=== PATIENT | male | born 1975 | race Caucasian/White ===

== ENCOUNTER 2018-03-25 01:19 | Outpatient (CLI) | payer OTHER, SELFPAY | END 2018-03-25 01:39 | PROVIDERS: PCP Family Medicine; Visit Provider Nurse Practitioner Family | DX: F11.20 Opioid dependence, uncomplicated (principal); Z79.899 Other long term (current) drug therapy; Z13.6 Encounter for screening for cardiovascular disorders | CPT/HCPCS: 93005; 93010 ==

== ENCOUNTER 2018-08-18 10:31 | Emergency (ER) | payer OTHER, SELFPAY ==
[2018-08-18 10:36] VITALS: BP 133/89; PULSE 79; RESP 16; TEMP 37.1; O2SAT 98
[2018-08-18] MEDS: Pantoprazole 40 MG TABCR PO (10:50)
[2018-08-18] MEDS: Sucralfate 1 GM TAB PO (10:51)
[2018-08-18] MEDS: Bupivacaine 0.5% Pres-Free 30 ML VIAL (10:51)
--- NOTE | 2018-08-18 11:23 | W.ED.GENAD ---
Discharge Plan Disposition Patient Disposition: HOME Condition: Good Discharge Details Chief Complaint: GI Bleed Clinical Impression: Toothache Primary Care Provider: Nixon Alonso ED Provider: Martin Degroot Home Meds and New Rx's Prescriptions: New sucralfate [Carafate] 1 gram tablet 1 gm PO QACHS Qty: 90 RF: 0 pantoprazole [Protonix] 40 mg tablet,delayed release (DR/EC) 40 mg PO DAILY Qty: 30 RF: 0 acetaminophen 500 mg capsule 1,000 mg PO Q6H PRN (Reason: pain) Qty: 30 RF: 0 amoxicillin-pot clavulanate [Augmentin] 875-125 mg tablet 1 tab PO BID Qty: 14 RF: 0 No Action metoprolol succinate 50 mg cap,sprinkle,ER 24hr dose pack 50 mg PO DAILY RF: 0 aspirin 81 mg tablet,delayed release (DR/EC) 81 mg PO DAILY Qty: 90 RF: 4 methadone [Methadose] 40 mg tablet,soluble 50 mg PO BID RF: 0 atorvastatin [Lipitor] 80 MG tablet 80 mg PO HS RF: 0 nitroglycerin [Nitrostat] 0.4 MG tablet, sublingual 0.4 mg Sublingual PRN PRNRF: 0 lisinopril 2.5 MG tablet 2.5 mg PO DAILY RF: 0 Discharge Instructions Instructions: Toothache (ED) Additional Instructions: Please take medication as directed. Please stop taking ibuprofen. Please follow-up immediately with your dentist if you notice any worsening of your symptoms, or any new symptoms such as vomiting, diarrhea, fever, chills, shortness of breath, chest pain, numbness, weakness, or fainting , please return immediately to the emergency department for reevaluation. Please follow up with your primary care provider as soon as possible for reassessment and reevaluation. As always, it was a pleasure participating in your medical care today. . Referrals: Nixon Alonso [Primary Care Provider] - Medical Decision Making This is a very pleasant 43-year-old male who presents for evaluation of toothache, as well as one episode of a small amount of blood in his stool. Patient has a history of dental caries this and has been taking a notable amount of ibuprofen over the last few days. The ibuprofen has been notably improving his pain, however with his aspirin I feel that it may have caused mild gastritis or gastric ulcer. No significant pain on exam. Rectal exam shows no evidence of active blood or melena. No significant tenderness on palpation of the abdomen. With the presence of the patient's dental caries we did perform a dental block of his tooth the patient feels complete relief. He most likely has a mild periapical infection, and we will start an antibiotic. I discussed with the patient further imaging and laboratory workup to evaluate for anemia, diverticulitis, or mass, the patient would like to hold off in any of this at this time. With a recent colonoscopy 5 years ago, no family history of colon cancer refill and no signs of abdominal tenderness on exam I feel the likelihood of an acute abdominal pathology is very low. Regardless did make it clear to the patient that if he has a change of opinion he can always return for repeat evaluation and further imaging and laboratory workup. The patient does understand. With reassuring vital signs, and pain completely relieved with the dental block I feel that he can be safely discharged home with close follow-up. We have given him the dental sheet for information for which to call, as well as red flags and reasons for which to promptly return. I have extensively reviewed the treatment plan and discharge instructions with the patient. I have addressed all patient concerns at this time. The patient was made aware of what symptoms to monitor for that would warrant a return to the emergency department. Discussed the plan with the patient, they demonstrate verbal understanding and agreement with our assessment and plan at this time. HPI General Date/Time Provider Initiated Documentation: 08/18/18 10:33. HPI Narrative: This is a 43-year-old male with past medical history of dental caries, as well as cardiac disease with 1 stent, hypertension, high cholesterol who presents today for toothache. The patient states that he has a history of dental caries and over the last few days he has had notable worsening of his right upper teeth for pain. He does have dental insurance now starting at the first of the year, but has not seen a dentist. He has been taking an excessive amount of ibuprofen over the last 2-3 days in conjunction with his regular aspirin, he states that this morning he noticed a small amount of red blood in conjunction with loose stool. he was at the [facility] clinic today and discussed this with them. He stated that he went to go see a dentist but they recommended he come in here for further evaluation. Patient denies any significant abdominal pain, vomiting, repeat rectal bleeding, pain with defecation, or other complaints. He denies any systemic symptoms of fever or chills. He did have a colonoscopy 5 years ago and this is normal. He has no family history of colon cancer. He denies any other complaints at this time. No other modifying factors. Related Data Home Medications Medication Instructions Recorded Confirmed atorvastatin [Lipitor] 80 mg PO HS 02/13/16 08/18/18 lisinopril 2.5 mg PO DAILY 02/13/16 08/18/18 nitroglycerin [Nitrostat] 0.4 mg SUBLINGUAL PRN PRN 02/13/16 08/18/18 methadone 40 mg soluble tablet 50 mg PO BID tab 03/25/18 08/18/18 metoprolol succinate ER 50 mg 50 mg PO DAILY 03/25/18 08/18/18 capsule sprinkle, ext. release 24 hr aspirin 81 mg tablet,delayed 81 mg PO DAILY #90 tab 03/27/18 08/18/18 release acetaminophen 1,000 mg PO Q6H PRN #30 cap 08/18/18 amoxicillin-pot clavulanate 1 tab PO BID #14 tab 08/18/18 [Augmentin] pantoprazole [Protonix] 40 mg PO DAILY #30 tab 08/18/18 sucralfate [Carafate] 1 gm PO QACHS #90 tab 08/18/18 Previous Rx's Medication Instructions Recorded aspirin 81 mg tablet,delayed 81 mg PO DAILY #90 tab 03/27/18 release acetaminophen 1,000 mg PO Q6H PRN #30 cap 08/18/18 amoxicillin-pot clavulanate 1 tab PO BID #14 tab 08/18/18 [Augmentin] pantoprazole [Protonix] 40 mg PO DAILY #30 tab 08/18/18 sucralfate [Carafate] 1 gm PO QACHS #90 tab 08/18/18 Allergies Allergy/AdvReac Type Severity Reaction Status Date / Time No Known Allergies Allergy Unverified 05/13/17 12:01 General Stated Complaint: GI Bleed SELVIN: 2 Review of Systems Review of Systems All systems reviewed & are unremarkable except as noted in HPI and below PFSH Medical History Mixed hyperlipidemia (Chronic) Methadone maintenance therapy patient (Chronic) Fibromyalgia (Chronic) Chronic low back pain (Chronic) Continuous tobacco abuse (Chronic) H/O acute myocardial infarction of inferior wall (Chronic) CAD (coronary artery disease) (Chronic) Surgical History Stented coronary artery (Chronic) Family History Father Myocardial infarction Social History household members: other details: brother lives independently: Yes well-balanced diet: rarely or never what type of physical activity do you participate in: walking, advised to exercise at least 150 min/week (moderate intensity aerobic) and sedentary lifestyle Smoking and Tabacco status: Current every day tobacco type: cigarettes Tobacco: How many years used: 25 quit status: considering quitting counseling given: provider counseling and counseling >10 minutes alcohol intake: former Exam Narrative Exam Narrative: 1.Const: Well-nourished, Well-developed, appearing stated age 2.Eyes: PERRL, no conjunctival injection, and symmetrical lids. 3.ENT: Atraumatic external nose and ears. Moist MM. Neck: Symmetric, trachea midline, No thyromegaly. Mild dental disease throughout, no evidence of periapical abscess, significant swelling, edema, or signs of severe infection. 4.CVS: +S1/S2, No murmurs or gallops. Peripheral pulses 2+ and equal in all extremities. Brisk capillary refill in all extremities. 5.RESP: Unlabored respiratory effort. Clear to auscultation bilaterally. No wheezes rales or rhonchi 6.GI: Soft, Nontender/Nondistended, No hepatosplenomegaly. No guarding or rebound. No signs of an acute or tender abdomen. Rectal exam with nurse at bedside demonstrates no gross blood, negative stool Hemoccult, no significant hemorrhoids or other abnormalities. No evidence of fissure. 7.MSK: Normocephalic/Atraumatic, Extremities w/o deformity or ttp No cyanosis or clubbing, Normal movement of all extremities 8.Skin: Warm, Dry. No rashes or lesions. 9.Neuro: community development aide II-XII grossly intact. Sensation grossly intact, no focal neurologic deficits. 10.Psych: (AAO) x3. Appropriate mood and affect Course Vital Signs Temperature 37.1 C 08/18/18 10:36 Pulse 79 08/18/18 10:36 Respiratory Rate 16 08/18/18 10:36 Blood Pressure 133/89 08/18/18 10:36 Pulse Oximetry 98 08/18/18 10:36 Temperature 37.1 C 08/18/18 10:36 Temperature Source Temporal Artery Scan 08/18/18 10:36 Pulse 79 08/18/18 10:36 Respiratory Rate 16 08/18/18 10:36 Respiratory Effort Non-Labored 08/18/18 10:45 Blood Pressure 133/89 08/18/18 10:36 Blood Pressure Position Supine 08/18/18 10:36 Pulse Oximetry 98 08/18/18 10:36 Oxygen Delivery Method Room Air 08/18/18 10:36 Oxygen Flow Rate 0 08/18/18 10:36 Pain Level 10 08/18/18 10:52
[2018-08-18 11:36] VITALS: BP 128/79; PULSE 84; RESP 15; O2SAT 98
== END 2018-08-18 11:35 | disposition home or self-care (01) ==
PROVIDERS: Emergency Provider Student in an Organized Health Care Education/Training Program; PCP Family Medicine
DX: K08.89 Other specified disorders of teeth and supporting structures (principal); K92.1 Melena
CPT/HCPCS: 99283

== ENCOUNTER 2018-11-17 15:54 | Emergency (ER) | payer OTHER, SELFPAY ==
[2018-11-17 16:05] VITALS: BP 115/78; PULSE 78; RESP 18; TEMP 37; O2SAT 97
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
== END 2018-11-17 18:55 | disposition home or self-care (01) ==
PROVIDERS: Emergency Provider Physician Assistant; PCP Family Medicine
DX: S61.412A Laceration without foreign body of left hand, initial encounter (principal); W45.8XXA Other foreign body or object entering through skin, initial encounter
CPT/HCPCS: 12001; 90471; 99283; 73130; 99282

== ENCOUNTER 2019-01-19 20:03 | Outpatient (CLI) | payer OTHER, SELFPAY ==
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
== END 2019-01-19 20:23 ==
PROVIDERS: PCP Family Medicine; Visit Provider Nurse Practitioner Family
DX: M79.671 Pain in right foot (principal)
CPT/HCPCS: 73630

== ENCOUNTER 2019-01-31 13:12 | Emergency (ER) | payer OTHER, SELFPAY ==
[2019-01-31 13:20] VITALS: BP 122/68; PULSE 71; RESP 16; TEMP 36.6; O2SAT 97
--- NOTE | 2019-01-31 13:41 | ED.GENADUL_ITS ---
Discharge Plan Discharge Details Chief Complaint: Laceration Primary Care Provider: Nixon Alonso ED Provider: Colton Ga Home Meds and New Rx's Prescriptions: No Action metoprolol succinate 50 mg capines,ER 24hr dose pack 50 mg PO DAILY RF: 0 aspirin 81 mg tablet,delayed release (DR/EC) 81 mg PO DAILY Qty: 90 RF: 4 methadone [Methadose] 40 mg tablet,soluble 50 mg PO BID RF: 0 atorvastatin [Lipitor] 80 MG tablet 80 mg PO HS RF: 0 nitroglycerin [Nitrostat] 0.4 MG tablet, sublingual 0.4 mg Sublingual PRN PRNRF: 0 lisinopril 2.5 MG tablet 2.5 mg PO DAILY RF: 0 sucralfate [Carafate] 1 gram tablet 1 gm PO QACHS Qty: 90 RF: 0 pantoprazole [Protonix] 40 mg tablet,delayed release (DR/EC) 40 mg PO DAILY Qty: 30 RF: 0 acetaminophen 500 mg capsule 1,000 mg PO Q6H PRN (Reason: pain) Qty: 30 RF: 0 amoxicillin-pot clavulanate [Augmentin] 875-125 mg tablet 1 tab PO BID Qty: 14 RF: 0 Medical Decision Making 43-year-old male presents from work after cutting his right fifth digit on a piece of metal. Is a large flap present, tethered by the distal portion. He was anesthetized with digital block, irrigated, examined in a bloodless field without evidence of foreign body HPI General Mode of arrival: ambulatory . Date/Time Provider Initiated Documentation: 01/31/19 13:13 . Limitations to Documentation: no limitations . Information obtained by: patient . History of Present Illness 43 year old M presents to the emergency department with the chief complaint of Right fifth digit laceration, described as moderate, and is localized to the right and upper extremity. Patient reports no radiation. Patient started experiencing this minute(s) and it has been constant. No relieving factors improve symptom(s), No exacerbating factors reported . Patient notes no other symptoms.. Patient did receive the following treatments prior to arrival, none Related Data Home Medications Medication Instructions Recorded Confirmed atorvastatin [Lipitor] 80 mg PO HS 02/13/16 08/18/18 lisinopril 2.5 mg PO DAILY 02/13/16 08/18/18 nitroglycerin [Nitrostat] 0.4 mg SUBLINGUAL PRN PRN 02/13/16 08/18/18 methadone 40 mg soluble tablet 50 mg PO BID tab 03/25/18 08/18/18 metoprolol succinate 50 mg capsule 50 mg PO DAILY 03/25/18 08/18/18 sprinkle, ext. release 24 hr aspirin 81 mg tablet,delayed 81 mg PO DAILY #90 tab 03/27/18 08/18/18 release acetaminophen 1,000 mg PO Q6H PRN #30 cap 08/18/18 amoxicillin-pot clavulanate 1 tab PO BID #14 tab 08/18/18 [Augmentin] pantoprazole [Protonix] 40 mg PO DAILY #30 tab 08/18/18 sucralfate [Carafate] 1 gm PO QACHS #90 tab 08/18/18 Previous Rx's Medication Instructions Recorded aspirin 81 mg tablet,delayed 81 mg PO DAILY #90 tab 03/27/18 release acetaminophen 1,000 mg PO Q6H PRN #30 cap 08/18/18 amoxicillin-pot clavulanate 1 tab PO BID #14 tab 08/18/18 [Augmentin] pantoprazole [Protonix] 40 mg PO DAILY #30 tab 08/18/18 sucralfate [Carafate] 1 gm PO QACHS #90 tab 08/18/18 Allergies Allergy/AdvReac Type Severity Reaction Status Date / Time No Known Allergies Allergy Verified 01/19/19 14:10 General Stated Complaint: Laceration SELVIN: 4 Review of Systems Review of Systems Tetanus up-to-date. No numbness or tingling. Denies other injury [facility] Medical History CAD (coronary artery disease) (Chronic) Chronic low back pain (Chronic) Continuous tobacco abuse (Chronic) Fibromyalgia (Chronic) H/O acute myocardial infarction of inferior wall (Chronic) Methadone maintenance therapy patient (Chronic) Mixed hyperlipidemia (Chronic) Surgical History Stented coronary artery (Chronic) Family History Father Myocardial infarction Social History Smoking/Tobacco Use Status: Current every day Tobacco Type: cigarettes Tobacco: How many years used: 25 Quit status: considering quitting Counseling given: provider counseling and counseling >10 minutes Alcohol Intake: former Drug use: Current Sobriety Household members: other Details: brother What type of physical activity do you participate in: walking, advised to exercise at least 150 min/week (moderate intensity aerobic) and sedentary lifestyle Seatbelt use: never Do you feel safe at home: Yes Do you feel safe in your relationship?: Yes Exam Narrative Exam Narrative: GEN: awake, alert, oriented 3. Pleasant, well groomed, interactive. HEAD: Normocephalic, atraumatic ENT: Mucous membranes moist, oropharynx unremarkable, External ear exam unremarkable EYES: PERRL, EOMI EXT: Full ROM, no edema, no rash. The right fifth digit has on the radial aspect a flap type laceration measuring approximately 4 x 1 cm. No foreign body seen. Distal two-point determination is intact at 1 cm Neuro: Grossly normal neurologic exam, conversant, interactive. Psych: Speech fluent, thoughts congruent, affect normal Course Vital Signs Temperature 36.6 C 01/31/19 13:20 Pulse 71 01/31/19 13:20 Respiratory Rate 16 01/31/19 13:20 Blood Pressure 122/68 01/31/19 13:20 Pulse Oximetry 97 01/31/19 13:20 Temperature 36.6 C 01/31/19 13:20 Temperature Source Temporal Artery Scan 01/31/19 13:20 Pulse 71 01/31/19 13:20 Respiratory Rate 16 01/31/19 13:20 Respiratory Effort 01/31/19 13:20 Blood Pressure 122/68 01/31/19 13:20 Blood Pressure Position Sitting 01/31/19 13:20 Pulse Oximetry 97 01/31/19 13:20 Oxygen Delivery Method Room Air 01/31/19 13:20 Oxygen Flow Rate 0 01/31/19 13:20
== END 2019-01-31 14:17 | disposition home or self-care (01) ==
LOC: ER 14:09
PROVIDERS: Emergency Provider Emergency Medicine; PCP Family Medicine
DX: S61.216A Laceration without foreign body of right little finger without damage to nail, initial encounter (principal); W26.8XXA Contact with other sharp object(s), not elsewhere classified, initial encounter; Y99.0 Civilian activity done for income or pay
CPT/HCPCS: 12002

== ENCOUNTER 2019-10-25 05:21 | Emergency (ER) | payer OTHER, SELFPAY ==
[2019-10-25] VITALS (15 sets, daily range): BP systolic 98–129; BP diastolic 61–82; PULSE 57–92; RESP 7–18; TEMP 36.6–36.8; O2SAT 95–99
[2019-10-25] MEDS: Normal Saline Flush 10 ML SYR IVP (05:30)
[2019-10-25 05:44] LABS: Abs Immature Grans 0.07 k/cumm (0.0-0.09); Absolute Basophil Count 0.02 k/cumm (0.0-0.2); Absolute Eosinophil Count 0.18 k/cumm (0.0-0.7); Absolute Lymphocyte Count 2.47 k/cumm (1.2-3.4); Absolute Monocyte Count 0.71 k/cumm (0.11-0.7); Absolute Neutrophil Count 5.99 k/cumm (1.2-6.7); Basophils % 0.2; Eosinophils % 1.9; HGB 17.4 g/dL (13.5-17.5); Immature Grans % 0.7 %; Lymphocytes % 26.2; Mean Corp. HGB Concentration 35.5 g/dL (32.0-36.0); Mean Corpuscular Hemoglobin 31.8 pg (27.0-33.0); Mean Corpuscular Volume 89.4 fL (80-95); Monocytes % 7.5; Neutrophils % 63.5; Platelet Count 314 x1000/uL (130-400); RBC 5.48 m/cumm (4.50-6.00); RBC Distribution Width 13.4 % (11.8-14.1); White Blood Cell Count 9.44 k/cumm (4.4-10.8)
--- NOTE | 2019-10-25 05:44 | W.ED.GENAD ---
Discharge Plan Disposition Patient Disposition: [facility] Condition: Critical Discharge Details Chief Complaint: Chest Pain Clinical Impression: CAD (coronary artery disease), Non-ST elevation MA (NSTEMI) Primary Care Provider: Nixon Alonso ED Provider: Ralph Manzo Home Meds and New Rx's Prescriptions: No Action aspirin 81 mg tablet,delayed release (DR/EC) 81 mg PO DAILY Qty: 90 RF: 4 methadone [Methadose] 40 mg tablet,soluble 50 mg PO BID RF: 0 nitroglycerin [Nitrostat] 0.4 MG tablet, sublingual 0.4 mg Sublingual PRN PRNRF: 0 acetaminophen 500 mg capsule 1,000 mg PO Q6H PRN (Reason: pain) Qty: 30 RF: 0 Medical Decision Making 549 --44-year-old male with history of coronary artery disease, status post MA x2 and stent placement, here with chest pain since 3 AM. Patient has had recent noncompliance with medication including aspirin, Plavix and Lipitor over the past 4 months. Patient is hemodynamically stable, saturating well in no respiratory distress. Mild to moderate chest pain on arrival. Screening ECG was reviewed and interpreted by me: Normal sinus rhythm 63 bpm, low voltage in precordial leads. RSR prime pattern, less than [address] elevation noted in lead III and aVF, [address] elevation noted in V3, less than [address] elevation V4. In comparison to prior ECG from 03/25/2018, these findings are new. Findings do not meet criteria for thrombolytics at this time but are concerning for acute ischemia. Patient received sublingual nitroglycerin x2 and had resolution of pain. Plan will be to obtain chest x-ray and if negative proceed to heparin bolus and infusion, additional aspirin, and Plavix. 601 -- cxr reviewed and interpreted by me: Normal mediastinum, no pneumothorax, no acute cardiopulmonary disease noted. Patient was reassessed and remains pain-free after 2 sublingual nitros. Blood pressure has decreased to 98/61. I will give normal saline bolus of 500 mL. -- Heparin bolus given and infusion initiated. Plavix 300 mg and aspirin to 243 mg given. 642 --I spoke with Dr. Eisenberg, on-call campus supervisor, discussed ED presentation and course. He agrees to accept patient on behalf of Dr. Stefany. No additional recommendation for therapeutics during transfer. [facility] transfer nurse notes maintain droplet precaution. HPI General Mode of arrival: ambulatory. Date/Time Provider Initiated Documentation: 10/25/19 05:26. Limitations to Documentation: no limitations. Information obtained by: patient. HPI Narrative: 44-year-old male with prior history of coronary artery disease status post MA x2 that was treated with stent, here with chief complaint of chest pain. Patient notes pain started around 3 AM today. Pain is located central chest and radiates into his neck. Pain is described as burning pressure. Symptoms feel exactly the same as when he had prior heart attack. He did take a single sublingual nitro at home which did seem to reduce his pain from maximal 6 out of 10 to now 4 out of 10. He does have associated mild shortness of breath. No leg swelling or calf pain. No recent long distance travel. No fever. He does have chronic smokers cough. Patient denies drug use. He is currently tapering off of methadone. Of note, patient has been noncompliant over the past 4 months with medications including aspirin, low tour, Plavix. Related Data Home Medications Medication Instructions Recorded Confirmed nitroglycerin [Nitrostat] 0.4 mg SUBLINGUAL PRN PRN 02/13/16 10/25/19 methadone 40 mg soluble tablet 50 mg PO BID tab 03/25/18 10/25/19 aspirin 81 mg tablet,delayed 81 mg PO DAILY #90 tab 03/27/18 10/25/19 release acetaminophen 1,000 mg PO Q6H PRN #30 cap 08/18/18 10/25/19 Previous Rx's Medication Instructions Recorded aspirin 81 mg tablet,delayed 81 mg PO DAILY #90 tab 03/27/18 release acetaminophen 1,000 mg PO Q6H PRN #30 cap 08/18/18 Allergies Allergy/AdvReac Type Severity Reaction Status Date / Time No Known Allergies Allergy Verified 01/19/19 14:10 General Stated Complaint: Chest Pain SELVIN: 2 Review of Systems All systems reviewed & are unremarkable except as noted in HPI and below Constitutional Constitutional: Denies fever(s) Cardiovascular Cardiovascular: Reports as per HPI Respiratory Respiratory: Reports as per HPI Gastrointestinal Gastrointestinal: Denies abdominal pain, Reports nausea (Yesterday which he attributes to methadone taper) and Reports vomiting ON LICENSE OF [facility] Medical History CAD (coronary artery disease) (Chronic) Chronic low back pain (Chronic) Continuous tobacco abuse (Chronic) Fibromyalgia (Chronic) H/O acute myocardial infarction of inferior wall (Chronic) inferior STEMI 12/2015, re-STEMI 02/2016 Methadone maintenance therapy patient (Chronic) Mixed hyperlipidemia (Chronic) Surgical History Stented coronary artery (Chronic) BMS to mid RCA 12/2015, [facility] [place] Family History Father Myocardial infarction Social History Smoking/Tobacco Use Status: Current every day Tobacco Type: cigarettes Smoking packs per day: 1 Smoking cigarettes per day: 20.0 Years smoked: 25 Smoking pack-years: 25.00 Tobacco: How many years used: 25 Quit status: considering quitting Counseling given: provider counseling and counseling >10 minutes Alcohol Intake: former Drug use: Current Sobriety Household members: other Details: brother What type of physical activity do you participate in: walking, advised to exercise at least 150 min/week (moderate intensity aerobic) and sedentary lifestyle Seatbelt use: never Do you feel safe at home: Yes Do you feel safe in your relationship?: Yes Exam Const General: cooperative and no acute distress HENMT Mouth: moist mucous membranes Eyes Conjunctivae: normal conjunctivae Sclera: normal sclerae Neck Neck: trachea midline and supple Resp Auscultation: clear to auscultation bilaterally, no rales, no rhonchi and no wheezes Cardio Jugular venous pressure: no JVD Rate: regular rate and not tachycardic Rhythm: regular rhythm Heart Sounds: no click, no murmurs and no rubs Pulses: radial pulses present bilaterally 2+ GI Inspection: non-distended Palpation: soft, not firm, no guarding, no masses, not rigid and tender (Diffuse mild) with no rebound tenderness Auscultation: normal bowel sounds Skin General skin exam: no rashes or lesions noted Neuro General: patient alert, patient awake and tone normal Extrem General: no calf tenderness and no edema Psych Appearance: grossly normal Mental Status: mental status grossly normal Speech and Movement: speech and movement normal Course Vital Signs Vital signs: Vital Signs Temperature 36.8 C 10/25/19 05:26 Pulse 67 10/25/19 05:26 Respiratory Rate 12 10/25/19 05:26 Blood Pressure 125/71 10/25/19 05:26 Pulse Oximetry 99 10/25/19 05:26 Temperature 36.8 C 10/25/19 05:26 Temperature Source Temporal Artery Scan 10/25/19 05:26 Pulse 67 10/25/19 05:26 Respiratory Rate 12 10/25/19 05:26 Respiratory Effort 10/25/19 05:29 Blood Pressure 125/71 10/25/19 05:26 Blood Pressure Position Sitting 10/25/19 05:26 Pulse Oximetry 99 10/25/19 05:26 Oxygen Delivery Method Room Air 10/25/19 05:26 Oxygen Flow Rate 0 10/25/19 05:26 Pain Level 4 10/25/19 05:26 Critical Care Time Critical Care Time Critical Care Time: Yes Total Critical Care Time: 42 Attestation: I spent greater than 42 minutes addressing this patient's immediate life threats
--- NOTE | 2019-10-25 05:50 | DI.RAD_ITS ---
EXAM: XR PORTABLE CHEST AP CLINICAL HISTORY: chest pain TECHNIQUE: 2D digital imaging was performed. COMPARISON: PORTABLE CHEST ONE VIEW from 05/13/2017 FINDINGS: Heart and mediastinum: Unremarkable. EKG leads overlie the chest. LUNGS: Clear. No infiltrate or pneumothorax. No pleural abnormality seen. IMPRESSION: No acute abnormality.
[2019-10-25 06:00] LABS: INR 1.1 (0.9-1.1); PTT Activated 23.3 sec (21.0-31.4); Prothrombin Time 10.6 sec (9.3-11.0)
[2019-10-25 06:04] LABS: ALT 45 U/L (16-63); AST 20 U/L (15-37); Albumin 3.8 g/dL (3.4-5.0); Alkaline Phosphatase 87 U/L (46-116); Anion Gap 8.5 mmol/L (3-11); BUN 17 mg/dL (7-18); Bilirubin, Total 0.8 mg/dL (0.2-1.0); CO2 28.5 mmol/L (21.0-32.0); CREATININE 1.22 mg/dL (0.70-1.30); Chloride 103 mmol/L (98-107); Glucose 131 mg/dL (74-106); Potassium 3.7 mmol/L (3.5-5.1); Sodium 140 mmol/L (136-145); Total Protein 7.8 g/dL (6.4-8.2)
[2019-10-25 06:05] LABS: Troponin I < 0.05 ng/Ml (<0.06)
[2019-10-25] MEDS: Clopidogrel 300 MG TAB PO (06:07)
[2019-10-25] MEDS: Aspirin 81 MG CHEW 243 MG PO (06:11)
[2019-10-25] MEDS: Normal Saline 500 ML 1000 ML IV (06:13)
--- NOTE | 2019-10-25 06:17 | DI.VRAD_ITS ---
PROCEDURE INFORMATION: Exam: XR Chest, 1 View Exam date and time: 10/25/2019 5:56 AM Age: 44 years old Clinical indication: Type not specified; Prior surgery; Surgery date: 6+ months; Surgery type: Stent placed in 2017; Patient HX: Chest pain this am TECHNIQUE: Imaging protocol: XR of the chest Views: 1 view. COMPARISON: CR PORTABLE CHEST ONE VIEW 03/15/2017 13:10 FINDINGS: Lungs: Unremarkable. No consolidation. Pleural space: Unremarkable. No pleural effusion. No pneumothorax. Heart/Mediastinum: Unremarkable. No cardiomegaly. Bones/joints: No acute bony findings. IMPRESSION: Normal chest x-ray. No change from the previous study. Dictated and Authenticated by: Wesley Sage MD. Ordering:CALEB Rosas MD
--- NOTE | 2019-10-25 07:28 | NUR.NOTE ---
Nursing Note: PT report transferred to [facility] RN ([facility]). PT will be transported by [facility] [employer] (Bud). IV infusion (Heprin 10ml/hr) will continue during transport. Dose and setting verified prior to departure. [facility] [employer] provided with nitro trip to be started per protocol if pain increases during transport. At the time of transfer the PT was alert and oriented, vitals stable. All documentation sent with EMS, to be porvided to [facility].
[2019-10-25 07:31] LABS: Troponin I < 0.05 ng/Ml (<0.06)
== END 2019-10-25 07:25 | disposition short-term general hospital (02) ==
PROVIDERS: Emergency Provider Student in an Organized Health Care Education/Training Program; PCP Family Medicine
DX: I25.10 Atherosclerotic heart disease of native coronary artery without angina pectoris (principal); I21.4 Non-ST elevation (NSTEMI) myocardial infarction; I25.2 Old myocardial infarction; Z95.828 Presence of other vascular implants and grafts; Z91.14 Patient's other noncompliance with medication regimen
CPT/HCPCS: 80053; 93005; 96361; 96365; 96376; 99285; 99291; 71045; 83735; 84484; 85025; 85610; 85730; 93010